=== PATIENT | female | born 1980 | race Caucasian/White ===

== ENCOUNTER 2017-03-29 13:30 | Emergency (ER) | payer SELFPAY ==
[~2017-03-29] VITALS: Ht 162.6 cm; Wt 91.0 kg
[2017-03-29] MEDS ORDERED: KETOROLAC 30MG/ML VIAL IV STA (16:38)
[2017-03-29] MEDS ORDERED: SODIUM CHLORIDE 0.9% 1,000 ML IV ONE (16:38)
[2017-03-29] MEDS ORDERED: ASPIRIN 81MG TABLET PO ONE (16:45)
[2017-03-29 17:09] LABS: BG BASE EXCESS -2.6 mmol/L (-2.0-2.0); BG CARBOXYHEMOGLOBIN 0.3 % (0.5-1.5); BG DEOXYHEMOGLOBIN 4.3 % (0.0-5.0); BG FRACTION INSPIRED OXYGEN 21; BG HCO3 ACT 21.6 mmol/L (22.0-26.0); BG METHEMOGLOBIN 0.2 % (0.0-1.5); BG OXYGEN SATURATION 95.7 % (92.0-98.5); BG OXYHEMOGLOBIN 95.2 % (94.0-97.0); BG PCO2 35.9 mmHg (35.0-45.0); BG PH 7.397 (7.350-7.450); BG PO2 80.9 mmHg (75.0-100.0); BG SAMPLE SITE LEFT BRACHIAL; BG TOTAL HEMOGLOBIN 14.1 g/dL (12.0-18.0); BG VENT MODE ROOM AIR
[2017-03-29 17:20] LABS: CLARITY URINE CLEAR (CLEAR); COLOR URINE YELLOW (YELLOW); GLUCOSE URINE NEGATIVE (NEGATIVE); KETONES URINE NEGATIVE (NEGATIVE); LEUKOCYTE ESTERASE URINE NEGATIVE (NEGATIVE); NITRITE URINE NEGATIVE (NEGATIVE); OCCULT BLOOD URINE TRACE (NEGATIVE); PROTEIN URINE NEGATIVE (NEGATIVE); SPECIFIC GRAVITY URINE 1.017 (1.005-1.030); UROBILINOGEN URINE 0.2 E.U./dL (0.2-1.0)
[2017-03-29 17:51] LABS: BASOPHILS % 0.7 % (0.0-2.0); EOSINOPHILS % 0.9 % (0.0-5.0); HEMATOCRIT. 39.7 % (36.0-48.0); HEMOGLOBIN. 13.2 g/dL (12.0-16.0); LYMPHOCYTES % 38.5 % (20.0-50.0); MEAN CORPUSCULAR HEMOGLOBIN 31.3 pg (28.0-32.0); MEAN CORPUSCULAR VOLUME 93.8 fL (81.0-99.0); MONOCYTES % 6.1 % (2.0-8.0); NEUTROPHILS % 53.8 % (40.0-76.0); PLATELET 273 x1000/uL (130-400); RED BLOOD CELL COUNT 4.23 mill/uL (4.2-5.4); RED CELL DISTRIBUTION WIDTH 13.6 % (11.6-14.6)
[2017-03-29 17:56] LABS: INR 1.1; PARTIAL THROMBOPLASTIN TIME 28.7 sec (24.0-34.0); PROTHROMBIN TIME 10.9 sec
[2017-03-29 17:57] LABS: CARBON DIOXIDE 27 mEq/L (21-32); CHLORIDE 103 mEq/L (98-107)
[2017-03-29 18:01] LABS: HCG SCREEN NEGATIVE
[2017-03-29 18:04] LABS: TROPONIN I < 0.02 ng/mL (0.00-0.04)
[2017-03-29 20:00] VITALS: BP 145/95
== END 2017-03-29 20:14 | disposition home or self-care (01) ==
LOC: ER 14:36
DX: R51 Headache (principal); I10 Essential (primary) hypertension; Z91.14 Patient's other noncompliance with medication regimen; Z71.89 Other specified counseling; R00.2 Palpitations; R20.0 Anesthesia of skin; E11.9 Type 2 diabetes mellitus without complications; E78.00 Pure hypercholesterolemia, unspecified
CPT/HCPCS: 36415; 36600; 70450; 71010; 80053; 81001; 82375; 82805; 83690; 83880; 84484; 84703; 85025; 85610; 85730; 93005; 96361; 96374; 99285; J1885; J7030; Z7610

== ENCOUNTER 2022-10-08 00:20 | Emergency (ER) | payer SELFPAY ==
[~2022-10-08] VITALS: Ht 154.9 cm; Wt 104.6 kg
[2022-10-08 00:39] VITALS: BP 154/94
== END 2022-10-08 02:00 | disposition left against medical advice (07) ==
LOC: ER 00:20
DX: Z53.21 Procedure and treatment not carried out due to patient leaving prior to being seen by health care provider (principal)

== ENCOUNTER 2025-10-30 03:38 | Inpatient (IN) | payer SELFPAY ==
[~2025-10-30] VITALS: Ht 154.9 cm; Wt 103.4 kg
[2025-10-30 03:46] VITALS: O2SAT 98
[2025-10-30 04:18] LABS: BASOPHILS % 0.6 % (0.0-2.0); EOSINOPHILS % 1.2 % (0.0-5.0); HEMATOCRIT. 42.5 % (36.0-48.0); HEMOGLOBIN. 13.6 g/dL (12.0-16.0); LYMPHOCYTES % 38.7 % (20.0-50.0); MEAN PLATELET VOLUME 8.0 fl (7.4-10.4); MONOCYTES % 6.3 % (2.0-8.0); NEUTROPHILS % 53.2 % (40.0-76.0); PLATELET 289 x1000/uL (130-400); RED BLOOD CELL COUNT 4.52 mill/uL (4.2-5.4); RED CELL DISTRIBUTION WIDTH 14.7 % (11.6-14.6)
[2025-10-30 04:36] LABS: CREATININE 0.7 mg/dL (0.6-1.0); UREA NITROGEN BLOOD 15 mg/dL (9-23)
[2025-10-30 04:58] LABS: CLARITY URINE CLEAR (CLEAR); COLOR URINE YELLOW (YELLOW); GLUCOSE URINE NEGATIVE (NEGATIVE); KETONES URINE NEGATIVE (NEGATIVE); LEUKOCYTE ESTERASE URINE 1+ (NEGATIVE); NITRITE URINE NEGATIVE (NEGATIVE); OCCULT BLOOD URINE TRACE (NEGATIVE); PH URINE 6.0 (4.5-8.0); PROTEIN URINE 1+ (NEGATIVE); SPECIFIC GRAVITY URINE 1.016 (1.005-1.030); UROBILINOGEN URINE 0.2 E.U./dL (0.2-1.0)
[2025-10-30 05:41] LABS: BACTERIA URINE NONE SEEN; RBC URINE 0-2 /hpf (0-2); SQUAMOUS EPITHELIAL CELL URINE FEW /lpf (RARE/1+); WBC URINE 0-2 /hpf (0-2)
[2025-10-30] MEDS: LABETALOL 5MG/ML 4ML INJ IV ONE (06:09)
[2025-10-30 08:00] VITALS: BP 157/76; PULSE 84; RESP 18; TEMP 36.6; O2SAT 98
[2025-10-30 08:13] VITALS: BP 157/76; PULSE 84; RESP 18; TEMP 36.6404
[2025-10-30] MEDS ORDERED: ONDANSETRON HCL 4MG/2ML INJ IV PRN (09:15)
[2025-10-30] MEDS ORDERED: ACETAMINOPHEN 650MG/20.3ML UDC GT PRN (09:15)
[2025-10-30] MEDS ORDERED: ACETAMINOPHEN 650MG SUPP PR PRN (09:15)
[2025-10-30] MEDS ORDERED: DOCUSATE SODIUM 100MG CAPSULE PO PRN (09:15)
[2025-10-30] MEDS ORDERED: IPRATROPIUM/ALBUTEROL 0.5-3(2.5)MG/3ML NEB HHN PRN (09:15)
[2025-10-30] MEDS ORDERED: CLONIDINE 0.1MG TABLET PO PRN (09:15)
[2025-10-30] MEDS: LISINOPRIL 10MG TABLET PO SCH (10:36)
[2025-10-30] MEDS ORDERED: ACETAMINOPHEN 650MG/20.3ML UDC PO PRN ×2 (10:45→13:15)
[2025-10-30] MEDS ORDERED: DEXTROSE 50% WATER 50ML SYRINGE IV PRN (10:45)
[2025-10-30] MEDS: BLOOD SUGAR DIAGNOSTIC STRIP TEST SCH (11:45)
[2025-10-30 12:00] VITALS: BP 138/69; PULSE 73; RESP 18; TEMP 36.4; O2SAT 98
[2025-10-30] MEDS: INSULIN LISPRO 100 UNITS/ML SUBCUT SCH (13:03)
[2025-10-30] MEDS: PANTOPRAZOLE SODIUM 40 MG/VIAL IV SCH (13:11)
[2025-10-30 16:00] VITALS: BP 139/70; PULSE 73; RESP 18; TEMP 36.5; O2SAT 97
[2025-10-30 20:00] VITALS: BP 110/51; PULSE 71; RESP 18; TEMP 36.4; O2SAT 95
[2025-10-30] MEDS: INSULIN GLARGINE 100 UNITS/ML SUBCUT SCH (22:00)
[2025-10-31] VITALS: BP 113/57; PULSE 72; RESP 18; TEMP 36.4; O2SAT 98
[2025-10-31 04:00] VITALS: BP 134/63; PULSE 74; RESP 18; TEMP 36.4; O2SAT 98
[2025-10-31 07:04] LABS: BASOPHILS % 0.4 % (0.0-2.0); EOSINOPHILS % 1.8 % (0.0-5.0); HEMATOCRIT. 40.8 % (36.0-48.0); HEMOGLOBIN. 13.3 g/dL (12.0-16.0); LYMPHOCYTES % 40.9 % (20.0-50.0); MEAN PLATELET VOLUME 8.4 fl (7.4-10.4); MONOCYTES % 6.4 % (2.0-8.0); NEUTROPHILS % 50.5 % (40.0-76.0); PLATELET 295 x1000/uL (130-400); RED BLOOD CELL COUNT 4.34 mill/uL (4.2-5.4); RED CELL DISTRIBUTION WIDTH 14.9 % (11.6-14.6)
[2025-10-31 07:35] LABS: CREATININE 0.5 mg/dL (0.6-1.0); T4 FREE 1.25 ng/dL (0.89-1.76); TRIGLYCERIDE 165 mg/dL (0-150); UREA NITROGEN BLOOD 8 mg/dL (9-23)
[2025-10-31 07:36] LABS: LDL CHOLESTEROL 132 mg/dL (5-100)
[2025-10-31 08:00] VITALS: BP 143/79; PULSE 75; RESP 18; TEMP 36.6; O2SAT 95
[2025-10-31] MEDS: ASPIRIN 81MG EC TABLET PO SCH (08:57)
[2025-10-31] MEDS ORDERED: AMLODIPINE 5MG TABLET PO SCH (09:00)
[2025-10-31] MEDS ORDERED: LISI10TA26 MT (09:17)
[2025-10-31] MEDS ORDERED: METF-414 MT (09:17)
[2025-10-31] MEDS ORDERED: ATOR20TA65 MT (09:17)
[2025-10-31 09:19] LABS: CLARITY URINE CLOUDY (CLEAR); COLOR URINE DARK YELLOW (YELLOW); GLUCOSE URINE NEGATIVE (NEGATIVE); KETONES URINE NEGATIVE (NEGATIVE); LEUKOCYTE ESTERASE URINE 1+ (NEGATIVE); NITRITE URINE NEGATIVE (NEGATIVE); OCCULT BLOOD URINE NEGATIVE (NEGATIVE); PH URINE 5.0 (4.5-8.0); PROTEIN URINE 1+ (NEGATIVE); SPECIFIC GRAVITY URINE 1.027 (1.005-1.030); UROBILINOGEN URINE 0.2 E.U./dL (0.2-1.0)
[2025-10-31 09:36] LABS: *AMPHETAMINES SCREEN URINE NEGATIVE (NEGATIVE); *BARBITURATES SCREEN URINE NEGATIVE (NEGATIVE); *BENZODIAZEPINES SCREEN URINE NEGATIVE (NEGATIVE); *COCAINE SCREEN URINE NEGATIVE (NEGATIVE); CANNABINOID URINE SCREEN NEGATIVE (NEGATIVE); ECSTASY MDMA SCREEN URINE NEGATIVE (NEGATIVE); METHADONE URINE SCREEN NEGATIVE (NEGATIVE); OPIATES URINE SCREEN NEGATIVE (NEGATIVE); PHENCYCLIDINE URINE SCREEN NEGATIVE (NEGATIVE)
[2025-10-31 10:09] LABS: SQUAMOUS EPITHELIAL CELL URINE 3+ /lpf (RARE/1+)
[2025-10-31 10:10] LABS: BACTERIA URINE 2+; RBC URINE 0-2 /hpf (0-2)
[2025-10-31 12:00] VITALS: BP 136/66; PULSE 65; RESP 20; TEMP 36.7; O2SAT 100
[2025-10-31 13:31] VITALS: BP 136/66; PULSE 59; RESP 20; TEMP 98.1
[2025-11-01] MEDS ORDERED: AMLODIPINE 5MG TABLET PO SCH (09:00)
== END 2025-10-31 13:45 | disposition home or self-care (01) | DRG 47 ==
LOC: ER 03:38 → 5WST 05:37 → EDBEDREQTM 05:49 → EDBEDREQ 05:49 → ENRESERV 05:54
PROVIDERS: ADMIT Internal Medicine; ATTEND Internal Medicine
DX: G45.9 Transient cerebral ischemic attack, unspecified (principal); E11.65 Type 2 diabetes mellitus with hyperglycemia; E66.9 Obesity, unspecified; I10 Essential (primary) hypertension; R51.9 Headache, unspecified; Z68.41 Body mass index [BMI] 40.0-44.9, adult; G47.33 Obstructive sleep apnea (adult) (pediatric); Z60.3 Acculturation difficulty; E78.00 Pure hypercholesterolemia, unspecified; Z82.49 Family history of ischemic heart disease and other diseases of the circulatory system; Z83.3 Family history of diabetes mellitus; Z98.891 History of uterine scar from previous surgery
CPT/HCPCS: 36415; 71045; 80048; 80061; 80305; 81003; 82962; 83036; 84439; 84443; 85025; 93005; 99291; J1815; J2470; J3490

== ENCOUNTER 2025-11-19 03:03 | Emergency (ER) | payer SELFPAY ==
[~2025-11-19] VITALS: Ht 157.5 cm; Wt 113.0 kg
[~2025-11-19 03:03] MED LIST: ATOR20TA65 MT; LISI10TA26 MT; METF-414 MT
[2025-11-19 03:26] VITALS: O2SAT 99
[2025-11-19] MEDS ORDERED: ATOR20TA65 MT (03:35)
[2025-11-19] MEDS ORDERED: METF-1149 PO (03:37)
[2025-11-19] MEDS ORDERED: LISI10TA26 MT (03:37)
[2025-11-19] MEDS ORDERED: AMLO10TA80 MT (05:09)
[2025-11-19 05:28] LABS: BASOPHILS % 0.7 % (0.0-2.0); EOSINOPHILS % 2.8 % (0.0-5.0); HEMATOCRIT. 41.6 % (36.0-48.0); HEMOGLOBIN. 13.7 g/dL (12.0-16.0); LYMPHOCYTES % 36.9 % (20.0-50.0); MEAN PLATELET VOLUME 9.3 fl (7.4-10.4); MONOCYTES % 4.7 % (2.0-8.0); NEUTROPHILS % 54.9 % (40.0-76.0); PLATELET 304 x1000/uL (130-400); RED BLOOD CELL COUNT 4.41 mill/uL (4.2-5.4); RED CELL DISTRIBUTION WIDTH 14.4 % (11.6-14.6)
[2025-11-19 05:39] LABS: CREATININE 0.7 mg/dL (0.6-1.0)
[2025-11-19 05:40] LABS: UREA NITROGEN BLOOD 11 mg/dL (9-23)
[2025-11-19 05:41] LABS: TROPONIN I HIGH SENSITIVITY < 4 ng/L (3.0-34)
[2025-11-19 05:46] VITALS: BP 144/63; PULSE 65; RESP 21; TEMP 36.6; O2SAT 99
[2025-11-19 07:20] LABS: INR 1.0
== END 2025-11-19 06:05 | disposition home or self-care (01) ==
LOC: ER 03:03
DX: I10 Essential (primary) hypertension (principal); E11.9 Type 2 diabetes mellitus without complications; E78.00 Pure hypercholesterolemia, unspecified; Z79.899 Other long term (current) drug therapy; Z98.890 Other specified postprocedural states
CPT/HCPCS: 36415; 71045; 80048; 84484; 85025; 93005; 99285